=== PATIENT | female | born 1965 | race African-American/Black ===

== ENCOUNTER 2019-06-11 12:39 | Emergency (ER) | payer OTHER ==
[~2019-06-11] VITALS: Ht 177.8 cm; Wt 79.4 kg
== END 2019-06-11 14:34 | disposition home or self-care (01) ==
LOC: ER 12:39
DX: S62.255A Nondisplaced fracture of neck of first metacarpal bone, left hand, initial encounter for closed fracture (principal); V19.9XXA Pedal cyclist (driver) (passenger) injured in unspecified traffic accident, initial encounter; Z88.8 Allergy status to other drugs, medicaments and biological substances; F17.210 Nicotine dependence, cigarettes, uncomplicated
CPT/HCPCS: 29125; 73130; 99283-25

== ENCOUNTER 2023-06-28 08:02 | Day surgery (SDC) | payer OTHER ==
[~2023-06-28] VITALS: Ht 177.8 cm; Wt 85.0 kg
[2023-06-28] MEDS ORDERED: ASPI325 (08:42)
[2023-06-28 10:15] VITALS: BP 123/80
== END 2023-06-28 10:14 | disposition home or self-care (01) ==
LOC: ORSCSDS 08:02
PROVIDERS: Internal Medicine Gastroenterology
PROC: 0DBN8ZX Excision of Sigmoid Colon, Via Natural or Artificial Opening Endoscopic, Diagnostic (ICD-10-PCS; principal; 2023-06-28 09:30)
DX: K59.09 Other constipation (principal); Z86.010 Personal history of colon polyps; D12.5 Benign neoplasm of sigmoid colon; K57.30 Diverticulosis of large intestine without perforation or abscess without bleeding; K64.8 Other hemorrhoids; I10 Essential (primary) hypertension; B19.20 Unspecified viral hepatitis C without hepatic coma; F17.210 Nicotine dependence, cigarettes, uncomplicated; Z83.71 Family history of colonic polyps; Z79.82 Long term (current) use of aspirin
CPT/HCPCS: 88305; J2704; J7120

== ENCOUNTER → 2024-03-27 | Outpatient (CLI) | payer OTHER ==
[~2024-03-27] MED LIST: ASPI325
== END ==
LOC: LAB 10:33 → LAB SHORT 10:33
DX: L02.91 Cutaneous abscess, unspecified (principal)
CPT/HCPCS: 87070; 87075; 87077; 87147; 87186; 87205